=== PATIENT | male | born 1990 | race Caucasian/White ===

== ENCOUNTER 2017-01-01 21:06 | Inpatient (IN) | payer OTHER ==
[~2017-01-01] VITALS: Ht 177.8 cm; Wt 147.3 kg
[~2017-01-01 21:06] MED LIST: FLEXERIL10 MG PO; KLONOPIN0.5 M1 PO; MECLIZINE HCL25 MG PO; MOTRIN600 MG PO
[2017-01-01 21:52] LABS: HEMATOCRIT 42.1 % (38.0-50.0); MCH 27.4 PG (29.0-34.0); MEAN PLAT.VOLUME 9.6 uM^3 (9.0-12.4); PLATELET COUNT 450 K/uL (156-360); RBC DIS.WIDTH-CV 12.3 % (11.8-14.6); RBC DIS.WIDTH-SD 37.2 % (39-53); RED BLOOD COUNT 5.07 M/uL (4.00-5.50); WHITE BLOOD COUNT 12.8 K/uL (4.1-10.2)
[2017-01-01 22:00] LABS: CHLORIDE 103 mEq/L (99-109); POTASSIUM 4.1 mEq/L (3.7-5.4); SODIUM 143 mEq/L (136-147)
[2017-01-01 22:02] LABS: GLUCOSE 103 mg/dL (70-99)
[2017-01-01 22:03] LABS: ANION GAP 12 MEQ/L (2-14)
[2017-01-01 22:05] LABS: SERUM ETHYL ALCOHOL < 10 mg/dL
[2017-01-01 22:06] LABS: GFR ESTIMATE (CALCULATED) > 59 mL/min/; UREA NITROGEN (BUN) 10 mg/dL (9-23)
[2017-01-02 18:13] VITALS: BP 131/90
[2017-01-03 08:02] VITALS: BP 151/96
[2017-01-03 15:44] VITALS: BP 138/86
[2017-01-04 08:09] VITALS: BP 141/91
[2017-01-04 15:46] VITALS: BP 114/75
[2017-01-05 08:00] VITALS: BP 127/76
[2017-01-05 15:33] VITALS: BP 147/88
[2017-01-06 08:09] VITALS: BP 137/87
[2017-01-06 15:54] VITALS: BP 155/88
[2017-01-07 08:07] VITALS: BP 161/72
[2017-01-07] MEDS ORDERED: ATARAX,VISTARIL25 MG PO (09:15)
== END 2017-01-07 11:05 | disposition home or self-care (01) | DRG 880 ==
LOC: EME 21:06 → 1WEST 01-02 12:54 → EDOF 01-02 12:54 → 1WEST 01-02 18:07
DX: F41.9 Anxiety disorder, unspecified (principal); F32.9 Major depressive disorder, single episode, unspecified; F11.20 Opioid dependence, uncomplicated; R45.851 Suicidal ideations; T40.601A Poisoning by unspecified narcotics, accidental (unintentional), initial encounter; E66.01 Morbid (severe) obesity due to excess calories; Z68.42 Body mass index [BMI] 45.0-49.9, adult
CPT/HCPCS: 71020; 80048; 80306 90; 85027; 90837; 97150 GO; 97165 GO; 99281; 99285; G0480; J0572; J0574; J2060

== ENCOUNTER 2017-01-13 07:49 | Emergency (ER) | payer OTHER ==
[~2017-01-13] VITALS: Ht 177.8 cm; Wt 138.2 kg
[~2017-01-13 07:49] MED LIST changes: +ATARAX,VISTARIL25 MG PO
[2017-01-13 09:17] LABS: BASOPHIL COUNT 0.1 K/uL (0-0.1); EOSINOPHIL (%) 0.1 % (0-5); IMMATURE GRANULOCYTE (%) 0.5 % (0.0-0.7); IMMATURE GRANULOCYTE COUNT 0.1 K/uL; INSTRUMENT ABS NEUTROPHIL CT 17.5 K/uL; MCH 27.3 PG (29.0-34.0); MCHC 33.1 G/DL (30.0-36.0); MCV 82.5 FL (86-99); MEAN PLAT.VOLUME 9.5 uM^3 (9.0-12.4); MONOCYTE (%) 7.5 % (3-12); MONOCYTE COUNT 1.6 K/uL (0-0.8); NEUTROPHIL (%) 82.2 % (45-76); NEUTROPHIL COUNT 17.5 K/uL (1.8-6.4); PLATELET COUNT 473 K/uL (156-360); RBC DIS.WIDTH-CV 12.5 % (11.8-14.6); RBC DIS.WIDTH-SD 37.6 % (39-53); RED BLOOD COUNT 5.09 M/uL (4.00-5.50); WHITE BLOOD COUNT 21.3 K/uL (4.1-10.2)
[2017-01-13 09:23] LABS: CHLORIDE 101 mEq/L (99-109); POTASSIUM 3.9 mEq/L (3.7-5.4); SODIUM 136 mEq/L (136-147)
[2017-01-13 09:24] LABS: GLUCOSE 148 mg/dL (70-99)
[2017-01-13 09:26] LABS: ANION GAP 16 MEQ/L (2-14)
[2017-01-13 09:27] LABS: SERUM ETHYL ALCOHOL < 10 mg/dL
[2017-01-13 09:28] LABS: GFR ESTIMATE (CALCULATED) > 59 mL/min/
[2017-01-13 09:29] LABS: UREA NITROGEN (BUN) 16 mg/dL (9-23)
[2017-01-13 09:32] VITALS: BP 116/99
[2017-01-13] MEDS ORDERED: SUBOXONE 4 MG-1 EACH (09:36)
[2017-01-13] MEDS ORDERED: BUPRENORPHIN-N1 EACH SL (17:21)
== END 2017-01-13 09:38 | disposition left against medical advice (07) ==
LOC: EME 07:49
PROVIDERS: Emergency Medicine
DX: F19.10 Other psychoactive substance abuse, uncomplicated (principal); D72.829 Elevated white blood cell count, unspecified
CPT/HCPCS: 80048; 81003; 85025; 93005; 99281; 99284; G0480

== ENCOUNTER 2017-01-13 13:42 | Inpatient (IN) | payer OTHER ==
[~2017-01-13] VITALS: Ht 177.8 cm; Wt 134.5 kg
[~2017-01-13 13:42] MED LIST changes: +SUBOXONE 4 MG-1 EACH
[2017-01-13 15:08] LABS: BASOPHIL COUNT 0.1 K/uL (0-0.1); EOSINOPHIL (%) 0.2 % (0-5); HEMATOCRIT 41.6 % (38.0-50.0); IMMATURE GRANULOCYTE (%) 0.4 % (0.0-0.7); IMMATURE GRANULOCYTE COUNT 0.1 K/uL; INSTRUMENT ABS NEUTROPHIL CT 13.4 K/uL; LYMPHOCYTE COUNT 2.6 K/uL (1.0-2.8); MCH 27.5 PG (29.0-34.0); MCHC 33.2 G/DL (30.0-36.0); MEAN PLAT.VOLUME 9.5 uM^3 (9.0-12.4); MONOCYTE (%) 10.7 % (3-12); MONOCYTE COUNT 1.9 K/uL (0-0.8); NEUTROPHIL (%) 73.8 % (45-76); NEUTROPHIL COUNT 13.4 K/uL (1.8-6.4); PLATELET COUNT 434 K/uL (156-360); RBC DIS.WIDTH-CV 12.6 % (11.8-14.6); RED BLOOD COUNT 5.01 M/uL (4.00-5.50); WHITE BLOOD COUNT 18.2 K/uL (4.1-10.2)
[2017-01-13 15:15] LABS: CHLORIDE 98 mEq/L (99-109); POTASSIUM 4.2 mEq/L (3.7-5.4); SODIUM 135 mEq/L (136-147)
[2017-01-13 15:17] LABS: GLUCOSE 127 mg/dL (70-99)
[2017-01-13 15:18] LABS: ANION GAP 13 MEQ/L (2-14)
[2017-01-13 15:19] LABS: TOTAL BILIRUBIN 1.1 mg/dL (0.0-1.0)
[2017-01-13 15:20] LABS: SERUM ETHYL ALCOHOL < 10 mg/dL
[2017-01-13 15:21] LABS: ALKALINE PHOSPHATASE 110 IU/L (3-129); GFR ESTIMATE (CALCULATED) > 59 mL/min/
[2017-01-13 15:22] LABS: UREA NITROGEN (BUN) 16 mg/dL (9-23)
[2017-01-13] MEDS ORDERED: BUPRENORPHIN-N1 EACH SL (17:21)
[2017-01-13 20:56] LABS: AMPHETAMINE NEGATIVE (500 ng/mL); BARBITURATES NEGATIVE (200 ng/mL); BENZODIAZEPINES PRESUMPTIVE POSITIVE (150 ng/mL); COCAINE PRESUMPTIVE POSITIVE (150 ng/mL); METHADONE NEGATIVE (200 ng/mL); METHAMPHETAMINE NEGATIVE (500 ng/mL); OPIATES (MORPHINE) PRESUMPTIVE POSITIVE (100 ng/mL); OXYCODONE NEGATIVE (100 ng/mL); PHENCYCLIDINE NEGATIVE (25 ng/mL); PROPOXYPHENE NEGATIVE (300 ng/mL); THC CANNABINOIDS NEGATIVE (50 ng/mL); TRICYCLIC ANTIDEPRESSANTS NEGATIVE (300 ng/mL)
[2017-01-13 20:57] LABS: ADD MEDTOX COMMENT Y
[2017-01-13 21:30] LABS: BENZODIAZEPINES, URINE SCREEN POSITIVE (200 ng/mL)
[2017-01-13 22:28] LABS: INTERNAL CONTROLS VALID? YES
[2017-01-14 01:25] VITALS: BP 135/86
[2017-01-14 07:41] VITALS: BP 136/63
[2017-01-14 15:22] VITALS: BP 118/62
[2017-01-15 07:29] VITALS: BP 126/61
[2017-01-15 16:05] VITALS: BP 126/58
[2017-01-15 16:44] LABS: ALKALINE PHOSPHATASE 99 IU/L (3-129); DIRECT BILIRUBIN 0.1 mg/dL (0.0-0.3); TOTAL BILIRUBIN 0.4 MG/DL (0.0-1.0)
[2017-01-16 07:58] VITALS: BP 128/66
[2017-01-16 16:10] VITALS: BP 132/69
[2017-01-17 07:50] VITALS: BP 163/93
[2017-01-17] MEDS ORDERED: FLUOXETINE HCL20 MG PO (10:08)
[2017-01-17] MEDS ORDERED: ATARAX,VISTARIL25 MG PO (10:08)
[2017-01-17 10:25] LABS: ALKALINE PHOSPHATASE 96 IU/L (3-129); DIRECT BILIRUBIN 0.1 mg/dL (0.0-0.3); TOTAL BILIRUBIN 0.4 MG/DL (0.0-1.0)
== END 2017-01-17 11:11 | disposition home or self-care (01) | DRG 897 ==
LOC: EME 13:42 → EDOF 19:22 → 1WEST 19:22
PROVIDERS: Emergency Medicine; Psychiatry & Neurology Psychiatry
DX: F11.23 Opioid dependence with withdrawal (principal); R45.851 Suicidal ideations; F32.9 Major depressive disorder, single episode, unspecified; F14.10 Cocaine abuse, uncomplicated; E66.01 Morbid (severe) obesity due to excess calories; Z68.41 Body mass index [BMI] 40.0-44.9, adult; F13.90 Sedative, hypnotic, or anxiolytic use, unspecified, uncomplicated; F41.1 Generalized anxiety disorder; R45.6 Violent behavior; M25.522 Pain in left elbow
CPT/HCPCS: 73080; 80053; 80076; 84999; 85025 91; 90837; 97150 GO; 97165 GO; 99281; 99285; G0480; J7030; Q0177